=== PATIENT | female | born 1935 | race Caucasian/White ===

== ENCOUNTER 2017-11-04 02:38 | Inpatient (IN) | payer OTHER ==
[~2017-11-04] VITALS: Ht 165.1 cm; Wt 102.6 kg
[~2017-11-04 02:38] MED LIST: AMILORIDE HCL-1 EACH PO; COZAAR50 M1 PO; FOSAMAX70 M1 PO; MELOXICAM7.5 M1 PO; MYRBETRIQ50 M1 PO; PRAVASTATIN SOD20 M2 PO; SERTRALINE HCL100 MG PO; SYSTANE 0.3-0.415 ML OU
[2017-11-04 09:30] LABS: ABSOLUTE BASOPHIL COUNT 0 /CUMM (0.0-0.2); ABSOLUTE EOSINOPHIL COUNT 0.2 /CUMM (0.0-0.7); ABSOLUTE GRANULOCYTE CT 4.9 /CUMM (1.4-6.5); ABSOLUTE LYMPH COUNT 1.2 /CUMM (1.2-3.4); ABSOLUTE MONOCYTE COUNT 0.6 /CUMM (0.10-0.60); BASOPHIL % 0.4 % (0.0-2.0); EOSINOPHIL % 2.3 % (0-5); GRANULOCYTE % 71.7 % (42.2-75.2); HEMATOCRIT 38.3 % (37-47); MEAN CORPUSCULAR HGB 28.8 PG (27.0-31.0); MEAN CORPUSCULAR HGB CONC 33.7 G/DL (33.0-37.0); MEAN CORPUSCULAR VOLUME 85.5 FL (81.0-99.0); MEAN PLATELET VOLUME 8.9 FL (7.4-10.4); PLATELET COUNT 182 /CUMM (130-400); RBC DISTRIBUTION WIDTH 14.4 % (11.5-14.5); RED BLOOD CELL CT 4.48 /CUMM (4.20-5.40); WHITE BLOOD CELL COUNT 6.9 /CUMM (4.8-10.8)
--- NOTE | 2017-11-04 10:23 | Admission Core Measures ---
Acute Coronary Syndrome (CM) ACS Core Measures Acute Coronary Syndrome Diagnosis No Congestive Heart Failure (NEW) CHF Core Measures Congestive Heart Failure Diagnosis No Cerebrovascular Accident CVA Core Measures CVA/TIA Diagnosis No Venous Thromboembolism VTE Core Oswald (View Protocol) VTE Risk Factors Surgery No Mechanical VTE Prophylaxis d/t N/A MechProphylax Ordered No VTE Pharm Prophylaxis d/t NA PharmProphylax ordered Problem List As ranked by this Provider includes Assessment & Plan 1. Unilateral primary osteoarthritis, right hip HOME MEDS Home Med List Alendronate Sodium (Fosamax) 70 MG TABLET 1 TAB PO QFRI BONES (Reported) Amiloride/Hydrochlorothiazide (Amiloride HCl-Hctz 5-50 MG Tab) 5 MG-50 MG TABLET 1 TAB PO DAILY BP (Reported) Losartan Potassium (Cozaar) 50 MG TABLET 1 TAB PO DAILY BP (Reported) Meloxicam 7.5 MG TABLET 1 TAB PO DAILY PAIN/INFLAMMATION (Reported) Mirabegron (Myrbetriq) 50 MG TAB.ER.24H 1 TAB PO DAILY BLADDER (Reported) Pravastatin Sodium 20 MG TABLET 1 TAB PO DAILY CHOLESTEROL (Reported) Propylene Glycol/Peg 400 (Systane 0.3-0.4% Eye Drops) (Unknown Strength) DROPS (Unknown Dose) OU AD PRN BOTH EYES (Reported) Sertraline HCl 100 MG TABLET 1 TAB PO DAILY MENTAL HEALTH (Reported)
[2017-11-04] MEDS ORDERED: PRILOSEC OTC20 M1 PO (10:46)
[2017-11-04] MEDS ORDERED: MIRALAX17 G1 PO (10:46)
[2017-11-04] MEDS ORDERED: COLACE100 M1 PO (10:46)
[2017-11-04] MEDS ORDERED: DILAUDID2 M1 PO (10:46)
[2017-11-04] MEDS ORDERED: ASPIRIN EC81 M1 PO (10:46)
--- NOTE | 2017-11-04 10:49 | Patient Discharge Instructions ---
Discharge Instructions General Discharge Information You were seen/treated for: Right hip pain related to unilateral primary osteoarthritis You had these procedures: Right total hip replacement Watch for these problems: Increasing pain despite the use of pain medication Increasing redness, warmth or swelling Drainage of any type from incision Inability to bear weight on operative leg Persistent nausea and vomiting Fever greater than 101.5 degrees Do not soak the wound: Yes No bath, but you may shower: Yes Other wound care: Please keep wound clean and dry. No ointments or lotions of any type on or near incision at any time. No exceptions. Your dressing will be changed by your nurse on the second day after your surgery. Daily dry dressing changes are recommended each day thereafter. Do not soak your wound in a bath at any time until otherwise indicated by your surgeon. You may shower, please dry wound immediately after shower with a clean towel. Special Instructions: Aspirin: You are taking this medication to help prevent blood clot formation. Please take with food to protect your stomach lining. Please take as directed. Constipation: Pain medication can cause constipation. Dr. Bowman has recommended that you take Colace and miralax each day. You may discontinue this medication if you develop loose stool or diarrhea. If you wish to continue this medication, it is available over the counter. If you are unable to move your bowels after several days, if you are unable to pass gas and are developing bloating, nausea, or vomiting as a result, please contact your doctor. Diet Continue normal diet: Yes Recommended Diet: Regular Activity Full Activity/No Limits: No Activity Self Limited: Yes Acute Coronary Syndrome Inclusion Criteria At DC or during hospital stay patient has or had the following: ACS DIAGNOSIS No Discharge Core Measures Meds if any: Prescribed or Continued at Discharge Meds if any: NOT Prescribed or Continued at Discharge Congestive Heart Failure Inclusion Criteria At DC or during hospital stay patient has or had the following: CHF DIAGNOSIS No Discharge Core Measures Meds if any: Prescribed or Continued at Discharge Meds if any: NOT Prescribed or Continued at Discharge Cerebrovascular accident Inclusion Criteria At DC or during hospital stay patient has or had the following: CVA/TIA Diagnosis No Discharge Core Measures Meds if any: Prescribed or Continued at Discharge Meds if any: NOT Prescribed or Continued at Discharge Venous thromboembolism Inclusion Criteria VTE Diagnosis No VTE Type NONE VTE Confirmed by (Test) NONE Discharge Core Measures - Per Current guidelines, there needs to be overlap - treatment for the first 5 days of Warfarin therapy. - If discharged on Warfarin prior to 5 days of - overlap therapy, the patient will need to be - assessed for post discharge needs including - *Post discharge parental anticoagulation - *Warfarin and/or parental anticoagulation education - *Follow up date to check INR post discharge At least 5 days overlap therapy as Inpatient No Meds if any: Prescribed or Continued at Discharge Note: Overlap Therapy is Warfarin and Anticoagulant Meds if any: NOT Prescribed or Continued at Discharge
--- NOTE | 2017-11-04 10:51 | Surgical Discharge Summary ---
Visit Information Visit Dates Admission Date: 11/04/17 Discharge Date: 11/07/17 History of Present Illness Chief Complaint: Right hip pain related to unilateral primary osteoarthritis Surgical History Pertinent Surgical History: non-contributory Review of Systems: See H&P Hospital Course Course Attending Physician: Jas Bowman MD Primary Care Physician: Rito CLEMENT,[place] Hospital Course: Patient was admitted to the hospital for an elective total joint replacement. The procedure was tolerated well and patient was transferred to a general surgical floor. Diet was advanced and tolerated. The patient was evaluated and treated by physical therapy, who determined she would benefit from short term rehab. At the time of hospital discharge, the vital signs were stable, neurovascular status was intact, and pain was controlled with the use of oral pain medications. Complications: None Allergies: Coded Allergies: codeine (N/V/D 11/03/17) Disposition Summary Disposition Principal Diagnosis: Right hip unilateral primary osteoarthritis Additional Diagnosis: None Discharge Disposition: SNF Discharge Instructions General Discharge Information Code Status: Full Code Patient's Diet: Regular, advance as tolerated Patient's Activity: WBAT Follow-Up Instructions/Appts: Follow up with Dr. Bowman in 6 weeks from date of surgery. Please call office to arrange &/or confirm this appointment. Medications at Discharge Discharge Medications: Stop taking the following medications: Meloxicam (Meloxicam) 7.5 MG TABLET ORAL DAILY Continue taking these medications: Amiloride/Hydrochlorothiazide (Amiloride HCl-Hctz 5-50 MG Tab) 5 MG-50 MG TABLET 1 Tablet ORAL DAILY Mirabegron (Myrbetriq) 50 MG TAB.ER.24H 1 Tablet ORAL DAILY Sertraline HCl (Sertraline HCl) 100 MG TABLET 1 Tablet ORAL DAILY Pravastatin Sodium (Pravastatin Sodium) 20 MG TABLET 1 Tablet ORAL DAILY Losartan Potassium (Cozaar) 50 MG TABLET 1 Tablet ORAL DAILY Alendronate Sodium (Fosamax) 70 MG TABLET 1 Tablet ORAL EVERY THURSDAY Instructions: in the morning, at least 30 minutes before the first food, beverage, or medication of the day Propylene Glycol/Peg 400 (Systane 0.3-0.4% Eye Drops) (Unknown Strength) DROPS Unknown Dose Both Eyes As Directed as needed for BOTH EYES Start taking the following new medications: Aspirin (Ecotrin*) 81 MG TABLET.DR 1 Tablet ORAL TWICE DAILY Qty = 60 No Refills Docusate Sodium (Colace) 100 MG CAPSULE 1 Capsule ORAL TWICE DAILY Qty = 14 No Refills Instructions: DISCONTINUE USE IF YOU DEVELOP LOOSE STOOL OR DIARRHEA Polyethylene Glycol 3350 (Miralax) 17 GRAM POWD.PACK 1 Packet ORAL DAILY Qty = 7 No Refills Instructions: dissolve in water, DISCONTINUE USE IF YOU DEVELOP LOOSE STOOL OR DIARRHEA Hydromorphone HCl (Dilaudid) 2 MG TABLET 1-2 Tablet ORAL EVERY 4-6 HOURS NEEDED as needed for PAIN Qty = 36 No Refills Omeprazole Magnesium (Prilosec Otc) 20 MG TABLET. 1 Tablet ORAL DAILY Qty = 30 No Refills Copies To: Rito CLEMENT,[place] [facility]
--- NOTE | 2017-11-04 15:24 | RADIOLOGY REPORT ---
EXAMINATION: XR HIP, RIGHT CLINICAL INFORMATION: Right hip replacement. COMPARISON: None TECHNIQUE: AP and crosstable lateral views of the right hip. FINDINGS: There is an intact right hip prosthesis identified. There is expected subcutaneous gas. IMPRESSION: Expected appearance to right hip prosthesis.
--- NOTE | 2017-11-04 16:10 | Operative Report ---
Operative/Inv Procedure Report Surgery Date: 11/04/17 Name of Procedure: Right total hip replacement Pre-Operative Diagnosis: Primary right hip DJD Post-Operative Diagnosis: Same Estimated Blood Loss: 300 Surgeon/Header Dock: Colby CLEMENT,Jas Song Anesthesia: block Operative/Procedure Note Note: Description of Procedure: The patient was taken to the operating room and positively identified. After induction of spinal anesthesia and administration of appropriate pre-operative antibiotics, the patient was positioned supine on the operating room table and all bony prominences were well padded. On physical exam, it was noted that her right knee exhibited an unusual clunking, possibly consistent with a pivot shift. After performing a surgical timeout, the right lower extremity was prepped and draped in the usual sterile fashion. A direct anterior approach was made to the right hip. The incision was carried sharply through superficial soft tissues to the level of the fascia. Meticulous hemostasis was maintained with Bovie electocautery. The fascia over the tensor fascia belle muscle was opened sharply and the interval between the TFL and the sartorius was entered bluntly taking care to stay lateral to the lateral femoral cutaneous nerve. Retractors were placed around the femoral neck and the pericapsular fat was identified. The ascending branches of the lateral femoral circumflex vessels were identified and carefully coagulated. The pericapsular fat and anterior capsule were then resected. A napkin ring osteotomy was performed and the femoral head was removed without difficulty. Attention was then turned to the acetabulum. After appropriate placement of retractors, the acetabulum was exposed. Soft tissue was cleaned from the acetabular margin and notch. Overhanging osteophytes were removed and the teardrop was exposed. The acetabulum was then sequentially reamed to accept a 58 mm Mine Tritanium hemispherical solid shell. This was impacted into place in the appropriate position and fitted with a 36 mm Trident X3 zero degree polyethylene insert. Attention was then turned to the femur. After performing the appropriate ligament releases, the proximal femur was exposed. It was then sequentially broached to accept a size #4 Alabaster Accolade 2 stem. This was trialed for leg length and stability. The trial component was removed and the final component was impacted into place. The trunnion was carefully cleaned and fit with a 36 mm, +0 Biolox delta ceramic femoral head. The hip was reduced and put through a full range of motion and found to be stable. The articular space was then irrigated with sterile saline. The periarticular soft tissues were infilitrated with Marcaine. The fascial layer was closed with interrupted #1 vicryl suture and the skin was re-approximated with interrupted 2 -0 vicryl. The skin was closed with a running 3-0 V-Lock suture. Steri-strips and a sterile dressing were applied. The patient was awakened and taken to the recovery room in satisfactory condition.
[2017-11-04 16:13] VITALS: BP 130/78
--- NOTE | 2017-11-04 17:24 | PN- Orthopedic ---
Subjective Subjective: Postop check: Patient feels well, no voiced complaints, no pain in the right hip. No chest pain or shortness of breath. Tolerated the surgery and anesthesia well Objective Vital Signs and I&Os Vital Signs Date Time Temp Pulse Resp B/P B/P Pulse O2 O2 Flow FiO2 Mean Ox Delivery Rate 11/04 1613 97.8 67 18 130/78 98 Room Air Intake & Output 11/04 1600 11/04 0800 11/04 0000 11/03 1600 11/03 0800 11/03 0000 Intake Total Output Total Balance Patient 220 lb Weight Physical Exam: Well-developed well-nourished no apparent distress. HEENT: Atraumatic, extraocular motion intact Neck: Supple, no lymphadenopathy Respiratory: No respiratory distress Extremities: No edema RIGHT lower extremity hip dressing in place, Dressing clean dry and intact Mild thigh swelling No signs of infection. No shortening or rotation Hip range of motion is limited and without unexpected pain Neurovascularly intact distally Bilateral calves are supple, nontender. Neuro: Alert and oriented x3 Psych: Mood affect normal, normal memory normal judgment. Skin: Warm and dry, no rash on exposed skin Assessment/Plan Assessment/Plan Postop day #0 status post right total hip arthroplasty anterior approach. Perioperative antibiotics. Pain medication as needed. Out of bed Physical therapy, weightbearing as tolerated IV fluids Regular diet Follow a.m. labs Aspirin for DVT prophylaxis ALPS for DVT prophylaxis Regular home meds Dressing change postop day 2 Core Measures Venous Thromboembolism VTE Risk Factors Surgery No Mechanical VTE Prophylaxis d/t N/A MechProphylax Ordered No VTE Pharm Prophylaxis d/t NA PharmProphylax ordered
[2017-11-04 20:00] VITALS: BP 122/64
[2017-11-04 22:13] VITALS: BP 138/66
[2017-11-05 06:56] VITALS: BP 118/56
[2017-11-05 07:54] LABS: ABSOLUTE BASOPHIL COUNT 0 /CUMM (0.0-0.2); ABSOLUTE EOSINOPHIL COUNT 0 /CUMM (0.0-0.7); ABSOLUTE LYMPH COUNT 0.5 /CUMM (1.2-3.4); ABSOLUTE MONOCYTE COUNT 0.7 /CUMM (0.10-0.60); EOSINOPHIL % 0 % (0-5); MEAN CORPUSCULAR HGB 28.9 PG (27.0-31.0); WHITE BLOOD CELL COUNT 9.1 /CUMM (4.8-10.8)
--- NOTE | 2017-11-05 08:07 | PN- Orthopedic ---
Subjective Subjective: No acute overnight events reported. Pain controlled. has yet to ambulate. Denies chest pain, shortness of breath and difficulty breathing. Denies nausea and vomitting. Has been voiding. Objective Vital Signs and I&Os Vital Signs Date Time Temp Pulse Resp B/P B/P Pulse O2 O2 Flow FiO2 Mean Ox Delivery Rate 11/05 1021 98.3 85 18 114/62 94 Room Air 11/05 0823 94 116/60 11/05 0656 98.3 76 18 118/56 94 Room Air 11/04 2213 97.7 74 17 138/66 96 Room Air 11/04 2000 97.6 76 18 122/64 96 Room Air 11/04 1613 97.8 67 18 130/78 98 Room Air Intake & Output 11/05 1600 11/05 0800 11/05 0000 11/04 1600 11/04 0800 11/04 0000 Intake Total 720 1230 Output Total 200 200 450 Balance -200 520 780 Intake, IV 600 750 Intake, Oral 120 480 Number 0 Bowel Movements Output, Urine 200 200 450 Patient 226 lb 230 lb Weight Weight Bed scale Measurement Method Physical Exam: General: Alert and oriented x3, no acute distress Cardiac: RRR, s1s2 Pulm: C T A bilaterally ABD: soft, non-tender, non-distended Extremities: Moves all extremitites, distal sensation grossly intact. Bilateral calves soft. Dressing dry and intact. Thigh compartment soft. Assessment/Plan Assessment/Plan This is a 82 year old female, POD 1, s/p R THR -Continue current pain regimen, dc iv narcotic -OOB, WBAT -ASA 81 bid for dvt ppx -Anticipate dc later today vs tomorrow WIll discuss plan of care with Dr. Bowman Core Measures Venous Thromboembolism VTE Risk Factors Surgery No Mechanical VTE Prophylaxis d/t N/A MechProphylax Ordered No VTE Pharm Prophylaxis d/t NA PharmProphylax ordered
[2017-11-05 08:24] LABS: ABSOLUTE GRANULOCYTE CT 7.9 /CUMM (1.4-6.5); BASOPHIL % 0 % (0.0-2.0); GRANULOCYTE % 86.5 % (42.2-75.2); MEAN CORPUSCULAR HGB CONC 33.9 G/DL (33.0-37.0); MEAN CORPUSCULAR VOLUME 85.2 FL (81.0-99.0); MEAN PLATELET VOLUME 9.7 FL (7.4-10.4); PLATELET COUNT 152 /CUMM (130-400); RBC DISTRIBUTION WIDTH 14.3 % (11.5-14.5); RED BLOOD CELL CT 3.77 /CUMM (4.20-5.40)
[2017-11-05 08:43] LABS: HEMATOCRIT 32.1 % (37-47)
[2017-11-05 10:21] VITALS: BP 114/62
[2017-11-05 14:40] VITALS: BP 104/58
[2017-11-05 21:51] VITALS: BP 130/64
[2017-11-06 06:02] VITALS: BP 148/60
--- NOTE | 2017-11-06 07:53 | PN- Orthopedic ---
Subjective Subjective: Patient with reported confusion post morphine overnight, appears alert and oriented now. Acknowledges fatigue and generalized weakness but no specific complaints. Is OOB with pt, denies dizziness. Denies chest pain, shortness of breath. Denies nausea and vomitting. Objective Vital Signs and I&Os Vital Signs Date Time Temp Pulse Resp B/P B/P Pulse O2 O2 Flow FiO2 Mean Ox Delivery Rate 11/06 0602 98.0 100 16 148/60 95 Room Air 11/05 2151 98.5 96 20 130/64 95 Room Air 11/05 1440 98.4 76 18 104/58 96 Room Air 11/05 1021 98.3 85 18 114/62 94 Room Air 11/05 0823 94 116/60 Intake & Output 11/06 0800 11/06 0000 11/05 1600 11/05 0800 11/05 0000 11/04 1600 Intake Total 480 800 109 951 0785 Output Total 500 200 450 200 450 Balance -20 600 75 520 780 Intake, IV 75 600 750 Intake, Oral 480 800 450 120 480 Number 0 0 Bowel Movements Output, Urine 500 200 450 200 450 Patient 226 lb 230 lb Weight Weight Bed scale Measurement Method Physical Exam: General: Alert and oriented x3, fatigued, no distress Cardiac: RRR, s1s2 Pulm: CTA, non-labored respiratory effort Abd: Non-distended Extremities: Neurovascular status intact, calves soft and non-tender bilaterally Surgical site: Right hip. Dressing intact, some bruising noted. No drainage. Steristrips in place. Clean, dry dressing reapplied. Assessment/Plan Assessment/Plan This is a 82 year old female, POD 2, s/p R THR, pmh significant for osteoporosis , htn, hld, dep, and oab. -OOB with pt, wbat, ?clearance for home vs snf -ASA 81 bid for dvt ppx -follow up electrolytes this am -continue diet as tolerated -continue bowel regimen Will discuss plan of care with Dr. Bowman Core Measures Venous Thromboembolism VTE Risk Factors Surgery No Mechanical VTE Prophylaxis d/t N/A MechProphylax Ordered No VTE Pharm Prophylaxis d/t NA PharmProphylax ordered
[2017-11-06 08:01] LABS: ABSOLUTE BASOPHIL COUNT 0 /CUMM (0.0-0.2); ABSOLUTE EOSINOPHIL COUNT 0 /CUMM (0.0-0.7); ABSOLUTE GRANULOCYTE CT 8.4 /CUMM (1.4-6.5); ABSOLUTE LYMPH COUNT 0.9 /CUMM (1.2-3.4); BASOPHIL % 0.1 % (0.0-2.0); EOSINOPHIL % 0.1 % (0-5); GRANULOCYTE % 80.9 % (42.2-75.2); MEAN CORPUSCULAR HGB 28.9 PG (27.0-31.0); MEAN CORPUSCULAR HGB CONC 34.1 G/DL (33.0-37.0); MEAN CORPUSCULAR VOLUME 84.7 FL (81.0-99.0); MEAN PLATELET VOLUME 9.2 FL (7.4-10.4); PLATELET COUNT 149 /CUMM (130-400); RBC DISTRIBUTION WIDTH 14.4 % (11.5-14.5); RED BLOOD CELL CT 3.67 /CUMM (4.20-5.40); WHITE BLOOD CELL COUNT 10.4 /CUMM (4.8-10.8)
[2017-11-06 14:12] VITALS: BP 102/55
[2017-11-06 21:34] VITALS: BP 130/70
[2017-11-07 06:30] VITALS: BP 140/71
--- NOTE | 2017-11-07 07:28 | PN- Orthopedic ---
See Addendum Subjective Subjective: Reports pain controlled. Tolerating diet. No nausea. Passing flatus. No bm yet. Out of bed without dizziness. No shortness of breath. No chest pains. Her goal is to go home. Objective Vital Signs and I&Os Vital Signs Date Time Temp Pulse Resp B/P B/P Pulse O2 O2 Flow FiO2 Mean Ox Delivery Rate 11/06 2133 98.5 74 130/70 93 Room Air 11/06 1600 94 Room Air 11/06 1412 98.9 94 18 102/55 94 Room Air 11/06 0849 100 148/60 Intake & Output 11/07 0811/07 0000 11/06 1600 11/06 0800 11/06 0000 11/05 1600 Intake Total 490 250 730 480 800 525 Output Total 450 500 500 200 450 Balance 40 250 230 -20 600 75 Intake, IV 10 10 10 75 Intake, Oral 480 240 720 480 800 450 Number 0 0 0 Bowel Movements Output, Urine 450 500 500 200 450 Physical Exam: General - alert & oriented x 3. comfortable. no acute distress. Lungs - clear bilaterally. no w/r/r. Cardiac - s1s2. reg. Abdomen - soft. nontender. nondistended. Extremities - warm bilaterally. right hip dressing changed. incision approximated with steri strips. no drains. no hematoma. no erythema or exudates. calves soft and nontender b/l. nvi. Current Medications: Current Medications Sig/Jr Start time Last Medication Dose Route Stop Time Status Admin Alendronate Sodium 70 MG QFRI@0711/06 07 AC 11/06 PO 0524 Amiloride HCl 5 MG DAILY 11/05 09 AC 11/06 PO 0849 Aspirin Buffered 81 MG BID 11/04 PO 2131 Docusate Sodium 100 MG BID 11/04 2100 AC 11/06 PO 2131 Hydrochlorothiazide 50 MG DAILY 11/05 09 AC 11/06 PO 0849 Hydromorphone HCl 2 MG Q4P PRN 11/04 1600 AC 11/04 PO 1605 Hydromorphone HCl 4 MG Q4P PRN 11/04 1600 AC 11/06 PO 1714 Losartan Potassium 50 MG DAILY 11/05 09 AC 11/06 PO 0849 Mirabegron 50 MG DAILY 11/05 09 AC 11/06 PO 0849 Omeprazole 40 MG DAILY AC 11/05 0700 AC 11/07 PO 0629 Ondansetron HCl 4 MG Q6P PRN 11/04 1600 AC 11/04 IV 2351 Patient Medication 1 ED ONE ONE 11/06 1400 DC Teaching ED 11/06 1401 Polyethylene Glycol 17 GM DAILY 11/05 0900 AC 11/06 PO 0849 Pravastatin Sodium 20 MG 1700 11/04 1700 AC 11/06 PO 1714 Promethazine HCl 12.5 MG Q6P PRN 11/04 1600 AC IV 11/11 1044 Sertraline HCl 100 MG DAILY 11/05 0900 AC 11/06 PO 0849 Results Last 48 Hours of Labs: Laboratory Tests 11/06 0735 Chemistry Sodium (137 - 145 mmol/L) 136 L Potassium (3.5 - 5.1 mmol/L) 3.8 Chloride (98 - 107 mmol/L) 101 Carbon Dioxide (22 - 30 mmol/L) 29 Anion Gap (5 - 16) 7 BUN (7 - 17 mg/dL) 15 Creatinine (0.5 - 1.0 mg/dL) 0.6 Estimated GFR (>60 ml/min) > 60 BUN/Creatinine Ratio (7 - 25 %) 25.0 Hematology CBC w Diff NO MAN DIFF REQ WBC (4.8 - 10.8 /CUMM) 10.4 RBC (4.20 - 5.40 /CUMM) 3.67 L Hgb (12.0 - 16.0 G/DL) 10.6 L Hct (37 - 47 %) 31.0 L MCV (81.0 - 99.0 FL) 84.7 MCH (27.0 - 31.0 PG) 28.9 MCHC (33.0 - 37.0 G/DL) 34.1 RDW (11.5 - 14.5 %) 14.4 Plt Count (130 - 400 /CUMM) 149 MPV (7.4 - 10.4 FL) 9.2 Gran % (42.2 - 75.2 %) 80.9 H Lymphocytes % (20.5 - 51.1 %) 8.9 L Monocytes % (1.7 - 9.3 %) 10.0 H Eosinophils % (0 - 5 %) 0.1 Basophils % (0.0 - 2.0 %) 0.1 Absolute Granulocytes (1.4 - 6.5 /CUMM) 8.4 H Absolute Lymphocytes (1.2 - 3.4 /CUMM) 0.9 L Absolute Monocytes (0.10 - 0.60 /CUMM) 1.0 H Absolute Eosinophils (0.0 - 0.7 /CUMM) 0 Absolute Basophils (0.0 - 0.2 /CUMM) 0 Assessment/Plan Assessment/Plan This is a 82 year old female with hx osteoporosis, htn, hld, depression, now POD #3 s/p R THR tolerating diet pain controlled asa 81 bid - dvt ppx dressing changed colace / miralax as ordered. try dulcolax VT x 1 this morning ?discharge to home vs snf pending PT assessment will d/w showcase maker will d/w Core Measures Venous Thromboembolism VTE Risk Factors Surgery No Mechanical VTE Prophylaxis d/t N/A MechProphylax Ordered No VTE Pharm Prophylaxis d/t NA PharmProphylax ordered
[2017-11-07 13:46] VITALS: BP 140/76
[2017-11-07 14:16] VITALS: BP 135/83
== END 2017-11-07 15:13 | DRG 470 ==
LOC: SDA 02:38 → ENRESERV 14:20 → ENTRNSPT 15:30 → EDTRNSPTSTS 15:37 → 2NB 15:48 → CMPTRNSPT 16:03 → ENPENDDIS 11-07 13:29 → 2NB 11-07 15:13
PROVIDERS: Nurse Practitioner; Orthopaedic Surgery
PROC: 0SR904A Replacement of Right Hip Joint with Ceramic on Polyethylene Synthetic Substitute, Uncemented, Open Approach (ICD-10-PCS; principal; 2017-11-04)
DX: M16.11 Unilateral primary osteoarthritis, right hip (principal); I10 Essential (primary) hypertension; E78.5 Hyperlipidemia, unspecified; F41.9 Anxiety disorder, unspecified; K21.9 Gastro-esophageal reflux disease without esophagitis; E66.01 Morbid (severe) obesity due to excess calories; Z68.39 Body mass index [BMI] 39.0-39.9, adult; Z85.51 Personal history of malignant neoplasm of bladder
CPT/HCPCS: 2NBSP; 36415; 73502-RT; 81001; 82436; 88304; 97110-GO; 97116-GO; 97161-GP; 97530-GO; J0131; J0690; J0735; J2405; J2550; J3490; J7042